=== PATIENT | male | born 1975 | race Caucasian/White ===

== ENCOUNTER 2016-08-27 03:23 | Emergency (ER) | payer OTHER ==
[2016-08-27 03:45] VITALS: BP 113/64; PULSE 86; TEMP 97.9; BMI 18.8
--- NOTE | 2016-08-27 04:37 | PDOC ---
History of Present Illness - General Chief Complaint: Back Pain Stated Complaint: POST BACK SURGERY/PAIN Time Seen by Provider: 08/27/16 03:56 History Source: Patient Exam Limitations: No Limitations - History of Present Illness Initial Comments: 08/27/16 04:36 Patient is a 41-year-old male with history of chronic back pain, seasonal allergies, chronic knee pain, c/o lower back pain. States she had some surgery on the back 2 days ago, but unable to fill prescription for pain meds because his pharmacy was closed today and unable to get it filled till Saturday. Pain is sharp, continuos 01/15 not radiating to the leg. No bowel of bladder incontinence. PMD: Sayageh PMHX: as above PSocHx: neg cig, drug, etoh FamHx: noncontributory ALL: PCN- rash GENERAL/CONSTITUTIONAL: [No fever or chills. No weakness. No weight change.] HEAD, EYES, EARS, NOSE AND THROAT: [No change in vision. No ear pain or discharge. No sore throat.] CARDIOVASCULAR: [No chest pain or shortness of breath.] RESPIRATORY: [No cough, wheezing, or hemoptysis.] GASTROINTESTINAL: [No nausea, vomiting, diarrhea or constipation. No rectal bleeding.] GENITOURINARY: [No dysuria, frequency, or change in urination.] MUSCULOSKELETAL: [(+) joint or muscle swelling or pain. (+) neck & back pain.] SKIN AND BREASTS: [No rash or easy bruising.] NEUROLOGIC: [No headache, vertigo, loss of consciousness, or loss of sensation.] PSYCHIATRIC: [No depression or anxiety.] ENDOCRINE: [No increased thirst. No abnormal weight change.] HEMATOLOGIC/LYMPHATIC: [No anemia, easy bleeding, or history of blood clots.] ALLERGIC/IMMUNOLOGIC: [No hives or skin allergy. No latex allergy.] GENERAL: [The patient is awake, alert, and fully oriented, in moderate painful distress.] HEAD: [Normal with no signs of trauma.] EYES: [Pupils equal, round and reactive to light, extraocular movements intact, sclera anicteric, conjunctiva clear.] ENT: [Ears normal, nares patent, oropharynx clear without exudates. Moist mucous membranes.] NECK: [Normal range of motion, supple without lymphadenopathy, JVD, or masses.] LUNGS: [Breath sounds equal, clear to auscultation bilaterally. No wheezes, and no crackles.] HEART: [Regular rate and rhythm, normal S1 and S2 without murmur, rub.] ABDOMEN: [Soft, nontender, normoactive bowel sounds. No guarding, no rebound. No masses.] EXTREMITIES: [Normal range of motion, no edema. No clubbing or cyanosis. No cords, erythema, or tenderness.] BACK: tenderness to the lower back paralumbar, NEUROLOGICAL: [Cranial nerves II through XII grossly intact. Normal speech, normal gait.] PSYCH: [Normal mood, normal affect.] SKIN: [Warm, Dry, normal turgor, no rashes or lesions noted.] Past History - Past Medical History Allergies/Adverse Reactions: Allergies Allergy/AdvReac Type Severity Reaction Status Date / Time Penicillins Allergy Intermediate Rash Verified 08/27/16 03:45 Home Medications: Ambulatory Orders Alprazolam [Xanax Xr] 1 mg PO DAILY 09/12/15 Bupropion HCl [Wellbutrin -] 75 mg PO DAILY 09/12/15 Chlorhexidine Gluconate [Peridex -] 15 ml MM BID #60 cup 09/12/15 Clindamycin [Cleocin -] 150 mg PO Q8H #28 capsule 09/12/15 Clindamycin [Cleocin -] 300 mg PO Q6HPO #28 capsule 09/12/15 [place] Carbonate [Eskalith -] 300 mg PO BID 09/12/15 Mometasone/Formoterol [Dulera 100 Mcg/5 Mcg Inhaler] 2 inh IH BID 09/12/15 Ondansetron [Zofran -] 8 mg PO PRN 09/12/15 Oxycodone HCl/Acetaminophen [Oxycodone-Acetaminophen 10-325] 1 each PO ASDIR 09/21 Tizanidine HCl [Zanaflex] 4 mg PO DAILY 09/12/15 Venlafaxine HCl ER [Effexor Xr -] 37.5 mg PO DAILY 09/12/15 Asthma: Yes - Immunization History Td Vaccination: Yes - Psycho/Social/Smoking Cessation Hx Anxiety: Yes Suicidal Ideation: No Smoking Status: Yes Smoking History: Current every day smoker Have you smoked in the past 12 months: No Number of Cigarettes Smoked Daily: 10 Information on smoking cessation initiated: No Hx Alcohol Use: No Drug/Substance Use Hx: No Substance Use Type: None *Physical Exam - Vital Signs Last Vital Signs Temp Pulse Resp BP Pulse Ox 97.9 F 86 19 113/64 100 08/27/16 03:42 08/27/16 03:42 08/27/16 03:42 08/27/16 03:42 08/27/16 03:42 Medical Decision Making - Medical Decision Making 08/27/16 04:37 Patient is a 41-year-old male with history of chronic back pain, seasonal allergies, chronic knee pain, c/o lower back pain on pain management here requesting pain meds. will given Roxycodone 15mg po now. I discussed the physical exam findings, ancillary test results and final diagnoses with the patient. I answered all of the patient's questions. The patient was satisfied with the care received and felt comfortable with the discharge plan and treatment plan. The Patient agrees to follow up with the primary care physician within 24-72 hours. *DC/Admit/Observation/Transfer Diagnosis at time of Disposition: Back pain Qualifiers: Back pain location: low back pain Chronicity: chronic Back pain laterality: unspecified Sciatica presence: without sciatica Qualified Code(s): M54.5 - Low back pain - Discharge Dispostion Disposition: HOME Condition at time of disposition: Stable - Referrals Referrals: Monse Steele [Primary Care Provider] - - Patient Instructions Printed Discharge Instructions: DI for Low Back Pain Additional Instructions: Your Discharge Instructions: You must call primary care physician within 24 hours to arrange follow-up. Return to the Emergency Department with any new, persistent or worsening symptoms, for fever, chills, SOB, dizziness or any other concerning changes that may occur.
[2016-08-27] MEDS ORDERED: oxyCODONE HCL 5 MG TABLET PO ONE (04:48)
[2016-08-27] MEDS ORDERED: oxyCODONE HCL 5 MG TABLET ONE (04:50)
== END 2016-08-27 05:06 | disposition home or self-care (01) ==
LOC: JER 03:23
DX: M54.5 Low back pain (principal); Z98.890 Other specified postprocedural states
CPT/HCPCS: 99282-25

== ENCOUNTER 2016-08-27 17:43 | Emergency (ER) | payer OTHER ==
[2016-08-27 17:49] VITALS: BP 139/77; PULSE 92; TEMP 97.9; BMI 22.3
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
[2016-08-27] MEDS ORDERED: KETOROLAC TROMETHAMINE 60 MG/2 ML VIAL IM ONE (19:09)
[2016-08-27] MEDS ORDERED: KETOROLAC TROMETHAMINE 60 MG/2 ML VIAL ONE (19:16)
== END 2016-08-27 19:43 | disposition home or self-care (01) ==
LOC: JERFT 17:43 → JER 17:43 → JERFT 19:43
PROC: 3E0233Z Introduction of Anti-inflammatory into Muscle, Percutaneous Approach (ICD-10-PCS; principal; 2016-08-27)
DX: M54.5 Low back pain (principal); F31.9 Bipolar disorder, unspecified; G89.29 Other chronic pain; J44.9 Chronic obstructive pulmonary disease, unspecified; Z87.891 Personal history of nicotine dependence
CPT/HCPCS: 99281-25

== ENCOUNTER 2016-11-22 16:55 | Emergency (ER) | payer OTHER ==
[2016-11-22 17:04] VITALS: BP 112/74; PULSE 82; TEMP 97.9; BMI 21.4
--- NOTE | 2016-11-22 17:51 | PDOC ---
History of Present Illness - General Chief Complaint: Rash Stated Complaint: RASH Time Seen by Provider: 11/22/16 17:06 History Source: Patient - History of Present Illness Initial Comments: 11/22/16 17:51 Patient came to emergency department for evaluation of extending rash. Onset of an itching maculopapular rash to the posterior fossa of right knee 3 days ago that has progressed quickly to both legs and extended up to all of legs bilaterally into abdomen, and bilateral arms. States is pruritic in nature, without weeping. States reason came to emergency department for evaluation as there was no resolved with antihistamine use, but states his thighs and muscles became so painful that he had difficulty walking this afternoon. Patient also reports some visual changes/blurriness for the past 2 days with mild frontal and coronal headache. has had poison ayesha in the past but this is not similar to that type of rash. has had no recent illness, no fevers, no earache or sore throat pain. Has never had any sexually transmitted diseases and is not sexually active for the past 6 months. Belongs to a pain management clinic for chronic back pain and has not changed any medications which include Percocet, Zanaflex for antispasm, also suffers from anxiety which she takes Xanax, lithium, and Wellbutrin. Has had no medication changes, has not augmented any medications with vitamins or herbal supplements. Has had no recent travel and lives alone with no exposure to any known illness. Timing/Duration: unsure Severity: moderate, severe Past History - Travel Traveled outside of the country in the last 30 days: No Close contact w/someone who was outside of country & ill: No - Past Medical History Allergies/Adverse Reactions: Allergies Allergy/AdvReac Type Severity Reaction Status Date / Time Penicillins Allergy Intermediate Rash Verified 11/22/16 17:00 Home Medications: Ambulatory Orders Alprazolam [Xanax Xr] 1 mg PO DAILY 09/12/15 Bupropion HCl [Wellbutrin -] 75 mg PO DAILY 09/12/15 Chlorhexidine Gluconate [Peridex -] 15 ml MM BID #60 cup 09/12/15 Clindamycin [Cleocin -] 150 mg PO Q8H #28 capsule 09/12/15 Clindamycin [Cleocin -] 300 mg PO Q6HPO #28 capsule 09/12/15 [place] Carbonate [Eskalith -] 300 mg PO BID 09/12/15 Mometasone/Formoterol [Dulera 100 Mcg/5 Mcg Inhaler] 2 inh IH BID 09/12/15 Ondansetron [Zofran -] 8 mg PO PRN 09/12/15 Oxycodone HCl/Acetaminophen [Oxycodone-Acetaminophen 10-325] 1 each PO ASDIR 09/21 Tizanidine HCl [Zanaflex] 4 mg PO DAILY 09/12/15 Venlafaxine HCl ER [Effexor Xr -] 37.5 mg PO DAILY 09/12/15 Bupropion HCl [Wellbutrin -] 75 mg PO DAILY 11/22/16 Asthma: Yes COPD: Yes Psychiatric Problems: Yes (anxeity , depression) Other medical history: chronic back pain - Immunization History Td Vaccination: Yes - Psycho/Social/Smoking Cessation Hx Anxiety: Yes Suicidal Ideation: No Smoking Status: Yes Smoking History: Former smoker Have you smoked in the past 12 months: Yes Number of Cigarettes Smoked Daily: 10 Information on smoking cessation initiated: Yes 'Breaking Loose' booklet given: 11/22/16 Hx Alcohol Use: No Drug/Substance Use Hx: No Substance Use Type: None Review of Systems - Review of Systems Able to Perform ROS?: Yes Is the patient limited [place] proficient: Yes Constitutional: Yes: Symptoms Reported, See HPI, Malaise HEENTM: Yes: See HPI. No: Symptoms Reported Respiratory: Yes: Symptoms reported, See HPI Musculoskeletal: Yes: Symptoms Reported Integumentary: Yes: Symptoms Reported, See HPI, Pruritus, Rash Neurological: Yes: Symptoms reported, See HPI, Headache Psychiatric: Yes: Anxiety, Depression Endocrine: No: Symptoms Reported Hematologic/Lymphatic: No: Symptoms Reported All Other Systems: Reviewed and Negative *Physical Exam - Vital Signs Last Vital Signs Temp Pulse Resp BP Pulse Ox 97.9 F 82 18 112/74 100 11/22/16 17:01 11/22/16 17:01 11/22/16 17:01 11/22/16 17:01 11/22/16 17:01 - Physical Exam General Appearance: Yes: Nourished, Appropriately Dressed, Apparent Distress, Mild Distress HEENT: positive: EOMI, ALLYSON, Normal ENT Inspection (no redness, swelling, exudate, or vesicular appearance to tonsils), TMs Normal, Pharynx Normal, Rhinorrhea. negative: Sinus Tenderness Neck: positive: Supple. negative: Lymphadenopathy (R), Lymphadenopathy (L) Respiratory/Chest: positive: Lungs Clear, Normal Breath Sounds. negative: Wheezing Cardiovascular: positive: Regular Rhythm Gastrointestinal/Abdominal: positive: Normal Bowel Sounds, Soft. negative: Tender, Guarding, Rebound, Tenderness Musculoskeletal: negative: CVA Tenderness, CVA Tenderness (L), Muscle Spasm (no deformity, cording, erythema or defect noted in either thigh/quadricep musculature or hamstrings. Has strong flexion and extension is ambulatory without unsteadiness or limp.) Extremity: positive: Normal Capillary Refill, Normal Inspection, Normal Range of Motion. negative: Swelling, Calf Tenderness Integumentary: positive: Dry, Pale, Clammy, Other (patches of discrete maculopapular rash in groups behind posterior processes bilateral knees, and then spread from feet and extending up to groin and again along bilateral arms. Have erythematous base, but nonvesicular, no weeping lesions, no tracking or tunneling. Has some lesions erupting on abdomen and groin, face is spared.) Neurologic: positive: desktop engineer II-XII NML intact, Fully Oriented, Alert, Normal Mood/ Affect, Normal Response, Motor Strength 5/5 ED Treatment Course - LABORATORY CBC & Chemistry Diagram: 11/22/16 18:00 11/22/16 18:00 Medical Decision Making - Medical Decision Making 11/22/16 18:30 Rash of unknown etiology with multiple other complaints including blurry vision and exquisite thigh pain. Will check multiple labs including CRP, ESR, Lyme's titer, RPR and CBC/chemistries and include CPK. Have provided 600 mg of by mouth ibuprofen and 1 Percocet tablet. We'll provide 1 L of IV fluid well labs pending and reevaluate. Visual acuity 20/25 bilaterally 11/22/16 18:31 11/22/16 18:31 11/22/16 19:29 Case was turned over to Cassie LEYVA for remainder of lab review and disposition. Patient updated plan and states feels much improved after Motrin, Percocet, and liter of IV fluid. Is resting quietly *DC/Admit/Observation/Transfer Diagnosis at time of Disposition: Rash and nonspecific skin eruption - Discharge Dispostion Disposition: HOME Condition at time of disposition: Stable Admit: No - Referrals Referrals: Nilo Steele MD [Primary Care Provider] - - Patient Instructions Additional Instructions: Rest, keep cool and dry- avoid strenuous activity or hot /humid environments Less hot showers, no abrasive soaps May use heavy creams like Eucerin or Cetaphil to keep skin moist May apply Aveeno, calamine lotion, [id number] hydrocortisone creams as needed for symptoms May use Benadryl at night for antihistamine, Zyrtec/ Chuyita or Claritin for daytime antihistamine use to help with itching May use [id number] hydrocortisone cream on all areas except face Try to identify cause for rash and avoid exposures Followup with PMD in one week if no resolution Make appointment with wrapping machine operator for evaluation when possible
[2016-11-22] MEDS ORDERED: IBUPROFEN 600 MG TABLET (FP) PO ONE ×2 (18:09→18:12)
[2016-11-22 18:15] LABS: URINE APPEARANCE CLEAR; URINE BILIRUBIN NEGATIVE (NEGATIVE); URINE BLOOD 2+ (NEGATIVE); URINE COLOR LT. YELLOW; URINE GLUCOSE (UA) NEGATIVE (NEGATIVE); URINE KETONE NEGATIVE (NEGATIVE); URINE LEUK ESTERASE NEGATIVE (NEGATIVE); URINE NITRITE NEGATIVE (NEGATIVE); URINE PROTEIN NEGATIVE (NEGATIVE); URINE UROBILINOGEN 0.2 mg/dL (0.2-1.0)
[2016-11-22 18:17] LABS: BASOPHIL 0.5 % (0-2.0); EOSINOPHIL 2.3 % (0-4.5); MCH 31.2 pg (25.7-33.7); MCHC 33.5 g/dl (32.0-35.9); MEAN CELL VOLUME 93.2 fl (80-96); MEAN PLT VOLUME 7.3 fl (7.5-11.1); NEUTROPHILS 68.3 % (42.8-82.8); PLATELET COUNT 334 K/MM3 (134-434); WHITE BLOOD COUNT 9.4 K/mm3 (4.0-10.0)
[2016-11-22] MEDS ORDERED: SODIUM CHLORIDE 0.9% 1000 ML INFUS.BAG IV ONE (18:25)
[2016-11-22 18:38] LABS: ALBUMIN 3.7 g/dl (3.4-5.0); ALK PHOS 84 U/L (45-117); ANION GAP 5 (8-16); BILIRUBIN,TOTAL 0.3 mg/dL (0.2-1.0); CALCIUM 9.5 mg/dL (8.5-10.1); CO2 33 mmol/L (21-32); CREATININE 0.8 mg/dL (0.7-1.3); GLUCOSE,RANDOM 71 mg/dL (74-106); SGOT/AST 17 U/L (15-37); SGPT/ALT 32 U/L (12-78); TOT PROT 7.3 g/dl (6.4-8.2)
[2016-11-22 18:43] LABS: URINE MUCUS MANY; URINE WBC <1 /hpf (3-5)
[2016-11-22 20:05] LABS: C-REACTIVE PROTEIN 1.2 MG/DL (0.00-0.3)
--- NOTE | 2016-11-22 20:21 | PDOC ---
*Physical Exam - Vital Signs Last Vital Signs Temp Pulse Resp BP Pulse Ox 97.9 F 82 18 112/74 100 11/22/16 17:01 11/22/16 17:01 11/22/16 17:01 11/22/16 17:01 11/22/16 17:01 ED Treatment Course - LABORATORY CBC & Chemistry Diagram: 11/22/16 18:00 11/22/16 18:00 - ADDITIONAL ORDERS Additional order review: Laboratory Results 11/22/16 11/22/16 11/22/16 18:08 18:00 18:00 Sodium 139 Potassium 4.5 Chloride 101 Carbon Dioxide 33 H Anion Gap 5 L BUN 8 Creatinine 0.8 Creat Clearance w eGFR > 60 Random Glucose 71 L Calcium 9.5 Total Bilirubin 0.3 AST 17 ALT 32 Alkaline Phosphatase 84 Creatine Kinase 93 C-Reactive Protein 1.2 H Total Protein 7.3 Albumin 3.7 Urine Color Lt. yellow Urine Appearance Clear Urine pH 6.0 Urine Protein Negative Urine Glucose (UA) Negative Urine Ketones Negative Urine Blood 2+ H Urine Nitrite Negative Urine Bilirubin Negative Urine Urobilinogen 0.2 Ur Leukocyte Esterase Negative Urine RBC None Urine WBC <1 Urine Mucus Many 11/22/16 18:00 RBC 4.37 MCV 93.2 MCHC 33.5 RDW 14.0 MPV 7.3 L Neutrophils % 68.3 Lymphocytes % 23.6 Monocytes % 5.3 Eosinophils % 2.3 Basophils % 0.5 - Medications Given in the ED: ED Medications Discontinued Medications Generic Name Dose Route Start Last Admin Trade Name Gunjan PRN Reason Stop Dose Admin Ibuprofen 600 mg 11/22/16 18:09 11/22/16 18:13 Motrin - PO 11/22/16 18:10 600 mg ONCE ONE Administration Oxycodone/Acetaminophen 1 combo 11/22/16 18:25 11/22/16 18:26 Percocet 5/325 - PO 11/22/16 18:26 1 combo ONCE ONE Administration Sodium Chloride 1,000 ml 11/22/16 18:25 11/22/16 18:27 Normal Saline - IV 11/22/16 18:26 1,000 ml ONCE ONE Administration Medical Decision Making - Medical Decision Making 11/22/16 20:15 Labs including CRP unremarkable. ESR, RPR and lyme titers pending but most like wont be resulted today. Pt reports feeling better but requesting medication for itching as Benadryl and claritin not working. Will send rx for short prednisone burst to pharmacy. Instructions for additional supportive treatment given by WISAM Smith. Pt to call ED tomorrow for results if available. Derm referral given. Pt to also f/u with his PMD *DC/Admit/Observation/Transfer Diagnosis at time of Disposition: Rash and nonspecific skin eruption - Discharge Dispostion Disposition: HOME Condition at time of disposition: Stable - Prescriptions Prescriptions: Prednisone [Deltasone -] 20 mg PO ASDIR #11 tablet - Referrals Referrals: Nilo Steele MD [Primary Care Provider] - Latosha Schwab MD [Staff Physician] - - Patient Instructions Additional Instructions: Rest, keep cool and dry- avoid strenuous activity or hot /humid environments Less hot showers, no abrasive soaps May use heavy creams like Eucerin or Cetaphil to keep skin moist May apply Aveeno, calamine lotion, [id number] hydrocortisone creams as needed for symptoms May use Benadryl at night for antihistamine, Zyrtec/ Chuyita or Claritin for daytime antihistamine use to help with itching May use [id number] hydrocortisone cream on all areas except face Try to identify cause for rash and avoid exposures Followup with PMD in one week if no resolution Make appointment with lead carpenter for evaluation when possible Call for results tomorrow at [phone] - Post Discharge Activity
== END 2016-11-22 20:24 | disposition home or self-care (01) ==
LOC: JERFT 16:55
DX: R21 Rash and other nonspecific skin eruption (principal)
CPT/HCPCS: 36415; 80053; 81003; 81015; 85025; 85651; 86140; 86593; 86618; 87491; 87591; 99281-25

== ENCOUNTER 2018-03-20 21:04 | Emergency (ER) | payer OTHER ==
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
[2018-03-20] MEDS ORDERED: ACETAMINOPHEN 325 MG TABLET (FP) PO ONE (22:44)
[2018-03-20] MEDS ORDERED: ACETAMINOPHEN 325 MG TABLET (FP) ONE (23:05)
[2018-03-20 23:26] VITALS: BP 103/71; PULSE 84; TEMP 97.7
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
[2018-03-21 01:50] VITALS: BMI 28.5
== END 2018-03-21 01:55 | disposition home or self-care (01) ==
LOC: JER 21:04
CPT/HCPCS: 72125-TC; 99281-25

== ENCOUNTER 2022-08-16 17:28 | Emergency (ER) | payer OTHER ==
[2022-08-16] MEDS ORDERED: LACTATED RINGERS SOLUTION 1000 ML INFUS.BAG IV ONE (17:54)
[2022-08-16 18:07] VITALS: BMI 47.6
[2022-08-16 18:20] LABS: BASO % 0.3 % (0-2.0); EOS % 0.2 % (0-4.5); HEMATOCRIT 39.1 % (35.4-49); HEMOGLOBIN 13.1 GM/dL (11.7-16.9); LYMPH % 11.5 % (8-40); MCH 29.7 pg (25.7-33.7); MCHC 33.5 g/dl (32.0-35.9); MEAN CELL VOLUME 88.6 fl (80-96); MEAN PLT VOLUME 6.8 fl (7.5-11.1); PLATELET COUNT 450 10^3/uL (134-434); RBC 4.41 M/mm3 (4.00-5.60); RDW 14.2 % (11.9-15.9); WHITE BLOOD COUNT 10.4 K/mm3 (4.0-10.0)
[2022-08-16 18:29] LABS: INR 1.13 (0.83-1.09); PROTHROMBIN TIME (PATIENT) 13.1 SEC (9.7-13.0)
[2022-08-16 18:51] LABS: POTASSIUM 3.6 mmol/L (3.5-5.1)
[2022-08-16 18:56] LABS: CALCIUM 9.5 mg/dL (8.5-10.1)
[2022-08-16 18:57] LABS: ALBUMIN 3.8 g/dl (3.4-5.0); MAGNESIUM 2.4 mg/dL (1.8-2.4)
[2022-08-16 19:00] LABS: CREATININE 0.9 mg/dL (0.55-1.3)
[2022-08-16 19:02] LABS: BILIRUBIN,TOTAL 0.5 mg/dL (0.2-1)
[2022-08-16 22:23] VITALS: BP 137/92; PULSE 70; RESP 13; TEMP 98.7
[2022-08-16] MEDS ORDERED: LIDOCAINE HCL 2% JELLY 10 ML CARTRIDGE ONE (23:26)
[2022-08-16 23:54] LABS: EPI CELLS 21 /uL (0-25.1); HYALINE CASTS 6 /uL (0-3.1); URINE APPEARANCE CLOUDY; URINE BACTERIA 55 /uL (0-1359); URINE BILIRUBIN NEGATIVE (NEGATIVE); URINE COLOR YELLOW; URINE GLUCOSE (UA) NEGATIVE (NEGATIVE); URINE KETONE TRACE (NEGATIVE); URINE LEUK ESTERASE NEGATIVE (NEGATIVE); URINE NITRITE NEGATIVE (NEGATIVE); URINE PROTEIN 1+ (NEGATIVE); URINE RBC 97 /uL (0-23.9); URINE UROBILINOGEN 0.2 mg/dL (0.2-1.0)
[2022-08-17 00:20] LABS: COCAINE, UR NEGATIVE (NEGATIVE); METHADONE, UR NEGATIVE (NEGATIVE); URINE AMPHETAMINES NEGATIVE (NEGATIVE)
[2022-08-17 00:21] LABS: PHENCYCLIDINE,URINE NEGATIVE (NEGATIVE); URINE BARBITURATES NEGATIVE (NEGATIVE)
[2022-08-17 00:27] LABS: OPIATES, URI POSITIVE (NEGATIVE); URINE BENZODIAZEPINES POSITIVE (NEGATIVE)
== END 2022-08-17 01:38 | disposition home or self-care (01) ==
LOC: JER 17:28
DX: G40.89 Other seizures (principal); Z20.822 Contact with and (suspected) exposure to COVID-19
CPT/HCPCS: 0241U-QW; 36415; 70450-TC; 71045-TC-FY; 73110-TC-LT-FY; 73130-TC-LT-FY; 76857; 80053; 80307; 81003; 83735; 84439; 84443; 85025; 85610; 87086; 93005; 93010; 99285-25